=== PATIENT | female | born 1950 | race Caucasian/White ===

== ENCOUNTER 2017-11-20 07:28 | Day surgery (SDC) | payer MEDICARE, OTHER ==
[~2017-11-20] VITALS: Ht 160 cm; Wt 70.8 kg
[2017-11-20] MEDS ORDERED: CALCIUM600 MG PO (07:45)
[2017-11-20] MEDS ORDERED: LIPITOR20 MG PO (07:45)
[2017-11-20] MEDS ORDERED: LEVOTHYROXINE25 MCG PO (07:45)
--- NOTE | 2017-11-20 09:32 | NUR ---
11/20/17 0932 Kelsea Stauffer 0908, PT A AND O X 4 MAINTAIN HER OWN AIRWAY, DENIES PAIN OR DISCOMFORT.
--- NOTE | 2017-11-21 09:12 | OR ---
[facility] [address], [place] [address] Signed DATE OF OPERATION: 11/20/2017 SURGEON: Ankit Field MD PREOPERATIVE DIAGNOSIS: Surveillance colonoscopy, history of polyps in 2005. POSTOPERATIVE DIAGNOSIS: Normal colon to cecum. PROCEDURE: Total colonoscopy to cecum. ANESTHESIA: Intravenous sedation, fentanyl 100 mcg, Versed 4 mg. INDICATION: This 67-year-old white woman is a patient of Dr. Snyder and Dr. Thorpe. She is here for surveillance colonoscopy, having undergone colonoscopy in 2005 and found to have polyps. She is symptom free having no bleeding, diarrhea, or constipation. No family history of colon cancer. She understands the risks of bleeding, infection, and perforation, related to colonoscopy and wished to proceed. FINDINGS: The prep was good. Complete colonoscopy was undertaken to the cecum without question. The ileocecal valve and appendiceal orifice were normal. The remaining colon was normal as well without signs of polyps, diverticular formation, colitis, or cancer. DESCRIPTION OF PROCEDURE: The patient was brought to the endoscopy suite and placed in lateral decubitus position, given intravenous sedation to the point of slurred speech and nystagmus. Digital rectal examination was normal. An Olympus video colonoscope was passed in the rectum and manipulated throughout the colon, ultimately intubating the cecum itself. The ileocecal valve and appendiceal orifice were normal. The scope was withdrawn from that point and examination throughout, with careful inspection showed no sign of abnormality, specifically no polyps, diverticular formation, colitis, or cancer. Retroflexed view was normal as well. There were a few internal hemorrhoidal changes. The scope was straightened withdrawn removed. The patient was taken to recovery room in good condition. Electronically Signed By: ANKIT FIELD MD 11/21/17 0912 PATIENT NAME: ANNABELLA LUO OPERATIVE REPORT DATE OF : 52 PHYSICIAN: ANKIT FIELD MD REPORT #: [id number] REPORT IS CONFIDENTIAL AND NOT TO BE RELEASED WITHOUT AUTHORIZATION [facility] [address] [facility] [place], [place] [address] Signed CONCLUDING DIAGNOSIS: Normal colon to cecum except for minimal hemorrhoids. PLAN: Recommend high-fiber diet. Repeat colonoscopy in 10 years, sooner if clinically indicated. She will return to the ongoing care of Dr. Snyder and Dr. Thorpe. MD ADRIANA Cantu/ALEXANDRO /[id number] cc: MD Tyron Hernánedz, Electronically Signed By: ANKIT FIELD MD 11/21/17 0912 PATIENT NAME: ANNABELLA LUO OPERATIVE REPORT DATE OF : 52 PHYSICIAN: ANKIT FIELD MD REPORT #: [id number] REPORT IS CONFIDENTIAL AND NOT TO BE RELEASED WITHOUT AUTHORIZATION
== END 2017-11-20 10:00 | disposition home or self-care (01) ==
LOC: OPS 07:28 → DS 07:28 → OPS 08:30 → DS 08:30 → OPS 10:00
PROVIDERS: Surgery
PROC: 0DJD8ZZ Inspection of Lower Intestinal Tract, Via Natural or Artificial Opening Endoscopic (ICD-10-PCS; principal; 2017-11-20 08:30)
DX: Z12.11 Encounter for screening for malignant neoplasm of colon (principal); K64.8 Other hemorrhoids; E78.00 Pure hypercholesterolemia, unspecified; E03.9 Hypothyroidism, unspecified; Z86.010 Personal history of colon polyps; Z98.890 Other specified postprocedural states
CPT/HCPCS: G0105; 99153; G0500; J2250; J3010; J7120

== ENCOUNTER 2022-04-12 11:56 | Emergency (ER) | payer OTHER, MEDICARE ==
[~2022-04-12] VITALS: Ht 160 cm; Wt 74.1 kg
[~2022-04-12 11:56] MED LIST: CALCIUM600 MG PO; LEVOTHYROXINE25 MCG PO; LIPITOR20 MG PO
--- OUTSIDE RECORDS SUMMARY | 2022-04-12 16:26 | XMS ---
PreManage Notification: ANNABELLA LUO [employer] Events No recent Security Events currently on file CRITERIA MET - [facility] - 2 Visits in 30 Days CARE PROVIDERS There are no care providers on record at this time. Gavin has no Care Guidelines for this patient. Ricardo VISIT COUNT (12 MO.) 1 Kadeem Whipple TOTAL 2 NOTE: Visits indicate total known visits. ED/C VISIT TRACKING (12 MO.) 04/12/2022 11:57 GLORIA Elizabeth [place] TYPE: Emergency COMPLAINT: - FALL 04/12/2022 00:00 Kadeem Martinez [place] TYPE: Emergency COMPLAINT: - TRAUMA TX DIAGNOSES: - TRAUMA TX INPATIENT VISIT TRACKING (12 MO.) No inpatient visits to display in this time frame [email or web address]
== END 2022-04-12 15:12 | disposition short-term general hospital (02) ==
LOC: ED 11:56
DX: S52.032A Displaced fracture of olecranon process with intraarticular extension of left ulna, initial encounter for closed fracture (principal); S42.492A Other displaced fracture of lower end of left humerus, initial encounter for closed fracture; S32.592A Other specified fracture of left pubis, initial encounter for closed fracture; S32.19XA Other fracture of sacrum, initial encounter for closed fracture; S42.212A Unspecified displaced fracture of surgical neck of left humerus, initial encounter for closed fracture; W11.XXXA Fall on and from ladder, initial encounter; Y92.9 Unspecified place or not applicable; Z87.891 Personal history of nicotine dependence; Z79.899 Other long term (current) drug therapy
CPT/HCPCS: 36415; 70450; 71260; 72125; 73030; 73080; 74177; 80053; 85025; 87502; C9803; J1170; J2405; Q9967; U0003

== ENCOUNTER 2022-04-18 10:10 | Inpatient (IN) | payer MEDICARE, OTHER ==
[~2022-04-18] VITALS: Ht 160 cm; Wt 67.8 kg
[2022-04-18] MEDS ORDERED: ATORVASTATIN CA20 MG PO (14:39)
[2022-04-18] MEDS ORDERED: LEVOTHYROXINE100 MCG PO (14:39)
[2022-04-18] MEDS ORDERED: PROBIOTIC1 EAC1 PO (17:39)
[2022-04-18] MEDS ORDERED: VITAMIN B-121000 MCG PO (17:40)
[2022-04-18] MEDS ORDERED: VITAMIN D325 MCG PO (17:40)
[2022-04-19] MEDS ORDERED: ENOXAPARIN40 MG/0.4 SUB-Q (10:34)
[2022-04-19] MEDS ORDERED: OYSTER SHELL 51 EAC4 PO (10:35)
[2022-04-19] MEDS ORDERED: TYLENOL325 MG PO (10:35)
[2022-04-19] MEDS ORDERED: OXYCODONE HCL5 MG PO (10:35)
[2022-04-19] MEDS ORDERED: BISACODYL10 MG PR (10:35)
[2022-04-19] MEDS ORDERED: SENNA LAX8.6 MG PO (10:35)
[2022-04-19] MEDS ORDERED: MILK OF MA400 MG/5 M PO (10:35)
[2022-04-19] MEDS ORDERED: ONDANSETRON ODT4 MG SL (10:36)
[2022-04-19] MEDS ORDERED: HEALTHYLAX17 GM PO (10:36)
[2022-04-19] MEDS ORDERED: LIDOCAINE1 EACH TD (10:36)
[2022-04-19] MEDS ORDERED: CULTURELLE1 EAC1 PO (10:36)
[2022-05-04] MEDS ORDERED: VITAMIN D325 MCG PO (07:34)
[2022-05-04] MEDS ORDERED: LEVOTHYROXINE100 MCG PO (07:34)
[2022-05-04] MEDS ORDERED: ATORVASTATIN CA20 MG PO (07:34)
[2022-05-04] MEDS ORDERED: VITAMIN B-121000 MCG PO (07:34)
[2022-05-04] MEDS ORDERED: LIDOCAINE1 EACH TD (07:34)
[2022-05-04] MEDS ORDERED: OXYCODONE HCL5 MG PO (11:37)
== END 2022-05-04 12:20 | disposition home or self-care (01) | DRG 560 ==
LOC: MS 10:10
PROVIDERS: ADMIT Internal Medicine; ATTEND Internal Medicine
PROC: 30233N1 Transfusion of Nonautologous Red Blood Cells into Peripheral Vein, Percutaneous Approach (ICD-10-PCS; principal; 2022-04-18)
DX: S52.022D Displaced fracture of olecranon process without intraarticular extension of left ulna, subsequent encounter for closed fracture with routine healing (principal); N13.30 Unspecified hydronephrosis; D62 Acute posthemorrhagic anemia; S32.512D Fracture of superior rim of left pubis, subsequent encounter for fracture with routine healing; S32.592D Other specified fracture of left pubis, subsequent encounter for fracture with routine healing; Z20.822 Contact with and (suspected) exposure to COVID-19; R33.9 Retention of urine, unspecified; E03.9 Hypothyroidism, unspecified; E78.5 Hyperlipidemia, unspecified; Z98.890 Other specified postprocedural states; Z98.891 History of uterine scar from previous surgery; Z79.899 Other long term (current) drug therapy; W11.XXXD Fall on and from ladder, subsequent encounter
CPT/HCPCS: 36415; 80048; 85025; 86850; 86900; 86901; 97110; 97116; 97162; 97166; 97530; 97535; A9270; C9803; J1650; U0003

== ENCOUNTER 2022-11-11 06:15 | Day surgery (SDC) | payer MEDICARE, OTHER ==
[~2022-11-11] VITALS: Ht 160 cm; Wt 68.2 kg
[~2022-11-11 06:15] MED LIST changes: +ATORVASTATIN CA20 MG PO; +BISACODYL10 MG PR; +CULTURELLE1 EAC1 PO; +ENOXAPARIN40 MG/0.4 SUB-Q; +HEALTHYLAX17 GM PO; +LEVOTHYROXINE100 MCG PO; +LIDOCAINE1 EACH TD; +MILK OF MA400 MG/5 M PO; +ONDANSETRON ODT4 MG SL; +OXYCODONE HCL5 MG PO; +OYSTER SHELL 51 EAC4 PO; +PROBIOTIC1 EAC1 PO; +SENNA LAX8.6 MG PO; +TYLENOL325 MG PO; +VITAMIN B-121000 MCG PO; +VITAMIN D325 MCG PO
[2022-11-11] MEDS ORDERED: HYDROCODON-ACE1 EA10 PO (09:01)
--- NOTE | 2022-11-11 09:09 | NUR ---
11/11/22 0909 Sheets,Eri 0900 PT ARRIVED TO PACU ON 6L VIA MASK, PT WAKES AND DENIES PAIN AND NAUSEA. PT REORIENTED TO PACU. 0905 O2 REMOVED, PT REPORTS BEING DROWSY.
--- NOTE | 2022-11-11 09:35 | NUR ---
0925-PATIENT BACK TO ROOM FROM PACU ON . RECEIVED REPORT FROM LEANDRA JURADO. PATIENT IS DROWSY. DENIES PAIN. STATES ARM IS NUMB. DENIES NAUSEA. DRESSING CLEAN, DRY, AND INTACT. ICE PACK TO LEFT ELBOW. PATIENT TAKING SIPS OF WATER. CALL LIGHT WITHIN REACH.
--- NOTE | 2022-11-11 09:51 | NUR ---
PATIENT DOING WELL. NO OTHER NEEDS AT THIS TIME. CALL LIGHT WITHIN REACH.
--- NOTE | 2022-11-11 10:35 | NUR ---
PATIENT LAYING IN BED WITH EYES CLOSED. RESP EVEN AND UNLABORED. DENIES PAIN AND NAUSEA. DRESSING CLEAN, DRY AND INTACT. ICE PACK IN PLACE. HOB ELEVATED AND PATIENT EATING CRACKERS. CALL LIGHT WITHIN REACH.
--- NOTE | 2022-11-11 11:05 | NUR ---
1105-PROVIDED DISCHARGE INSTRUCTIONS TO PATIENT. ALL QUESTIONS ANSWERED. PATIENT AMBULATES TO WHEELCHAIR. GATE STEADY AND TOLERATED WELL. STATES ARM IS STILL NUMB. RIDE PROVIDED TO FRONT OF HOSPITAL WHERE WAITING WITH THE CAR.
--- NOTE | 2022-11-11 23:19 | OR ---
[facility] [address] [place], [place] [address] Signed DATE OF OPERATION: 11/11/2022 SURGEON: Rox Mejía MD PREOPERATIVE DIAGNOSIS: Painful hardware, left elbow, status post open reduction and internal fixation. POSTOPERATIVE DIAGNOSIS: Painful hardware, left elbow, status post open reduction and internal fixation. PROCEDURE PERFORMED: Removal of hardware, left elbow deep. CLAMP REMOVER: None. ANESTHESIA: General with interscalene block. BLOOD LOSS: None. TOURNIQUET TIME: 38 minutes. BRIEF HISTORY: Sinai is a 71-year-old female who suffered a comminuted olecranon fracture that was repaired in [place]. She rehabbed her elbow, still had significant loss of extension with pain. She did have a plate wrapped around the backside of the olecranon and was painful to her. She would like to get that removed. PROCEDURE IN DETAIL: Once consent was obtained, she was taken to the operating room. After adequate anesthesia, she was placed on the operating table with a hand table. All downside pressure points well padded. The arm was prepped and draped in a standard sterile fashion and a sterile tourniquet was applied. This was done in well-padded fashion. The arm was exsanguinated using Esmarch bandage. Tourniquet inflated to 200 mmHg. Prior incision was marked out. Incision was taken through skin and subcutaneous tissue and a medial skin flap was developed. The plate was readily identifiable and soft tissue was cleaned over the top of it. Two distal screws were removed. The seven Electronically Signed By: ROX MEJÍA MD 11/11/22 2319 PATIENT NAME: SINAI LUO OPERATIVE REPORT DATE OF : 52 REPORT #: [id number] PHYSICIAN: ROX MEJAÍ MD PCP: INO GRANT DO REPORT IS CONFIDENTIAL AND NOT TO BE RELEASED WITHOUT AUTHORIZATION [facility] [address] [place], [place] [address] Signed proximal locking screws were all removed with these. The final interfrag screw was removed and the wounds were copiously irrigated after the plate was removed. The screw holes were curetted and the screw holes were packed with bone wax. Again, the wound was copiously irrigated with normal saline. The periosteum was closed with 3-0 Monocryl. The subcutaneous tissue with 3-0 Monocryl and the skin with 3-0 StrataFix. Steri-Strips were applied with LiquiBand. The wound was dressed with Allevyn dressing and Adrian wrap. She tolerated the procedure well. All sponge, needle, and instrument counts were correct. Rox Mejía MD BA/ALEXANDRO /[id number] Copies: ~ Electronically Signed By: ROX MEJÍA MD 11/11/22 2319 PATIENT NAME: SINAI LUO OPERATIVE REPORT DATE OF : 52 REPORT #: [id number] PHYSICIAN: ROX MEJÍA MD PCP: INO GRANT DO REPORT IS CONFIDENTIAL AND NOT TO BE RELEASED WITHOUT AUTHORIZATION
== END 2022-11-11 11:05 | disposition home or self-care (01) ==
LOC: DS 06:15
PROVIDERS: ATTEND Specialist
PROC: 3E0T3BZ Introduction of Anesthetic Agent into Peripheral Nerves and Plexi, Percutaneous Approach (ICD-10-PCS; 2022-11-11)
PROC: 0XP70YZ Removal of Other Device from Left Upper Extremity, Open Approach (ICD-10-PCS; principal; 2022-11-11 07:55)
DX: T84.84XA Pain due to internal orthopedic prosthetic devices, implants and grafts, initial encounter (principal); G89.18 Other acute postprocedural pain
CPT/HCPCS: J0690; J1100; J2001; J2250; J2405; J2704; J2795; J7121